=== PATIENT | male | born 1970 | race Caucasian/White ===

== ENCOUNTER 2017-06-04 19:54 | Emergency (ER) | payer MEDICAID ==
[~2017-06-04] VITALS: Ht 180.3 cm; Wt 104.3 kg
[2017-06-04 20:09] VITALS: BP 129/78
--- NOTE | 2017-06-04 22:10 | NUR ---
PAC BROTHERS AT BEDSIDE SPEAKING TO PT REGARDING RESULTS.
--- NOTE | 2017-06-04 22:17 | NUR ---
PT LEFT WITHOUT D/C PAPERS.
== END 2017-06-04 22:20 | disposition home or self-care (01) ==
LOC: ER 19:54
DX: T16.2XXA Foreign body in left ear, initial encounter (principal); H61.22 Impacted cerumen, left ear; I10 Essential (primary) hypertension; X58.XXXA Exposure to other specified factors, initial encounter; Y93.89 Activity, other specified; Y92.89 Other specified places as the place of occurrence of the external cause; Y99.8 Other external cause status
CPT/HCPCS: 69200; 99284; A4606; Z7610

== ENCOUNTER 2018-07-12 23:14 | Emergency (ER) | payer MEDICAID, OTHER ==
[~2018-07-12] VITALS: Ht 180.3 cm; Wt 99.8 kg
--- NOTE | 2018-07-12 23:20 | NUR ---
PATIENT BROUGHT IN BY PARAMEDICS TO BED 9 FOR SYNCOPAL EPISODE.AAOX 3.RESPIRATION EVEN AND UNLABORED.DENIES PAIN OR SOB.SALINE LOACK TO RIGHT HAND INTACT.VS STABLE.SAFETY PREACUTION IMPLEMENTED WITH BOTH SIDE RAILS UP. AT BEDSIDE.CALL LIGHT WITHIN REACH.
[2018-07-12] MEDS ORDERED: IV NS 0.9% 1,000 ML BAG IV ONE (23:30)
--- NOTE | 2018-07-12 23:30 | NUR ---
Addendum: Intravenous fluid administration 1) Normal saline 1 L; start-time 2330 - end time (07/13/2018) 2430 ; PIV # 20 RH; port # 1 2) Normal saline 1 L; start time (07/13/2018) 2430 - end time 0130; PIV # 20 RH; port #1
[2018-07-12 23:45] LABS: BASOPHILS # (AUTO) 0.1 /CMM (0.0-0.2); EOSINOPHILS % (AUTO) 2.3 % (0.0-6.0); HEMATOCRIT 44 % (39-51); HEMOGLOBIN 15.4 g/dL (13.5-17.5); LYMPHOCYTES # (AUTO) 2.8 /CMM (0.8-4.8); LYMPHOCYTES % (AUTO) 41.3 % (20.0-44.0); MEAN CORPUSCULAR HGB CONC 35 g/dl (31.0-36.0); MEAN CORPUSCULAR VOLUME 96 fL (80-96); MONOCYTES # (AUTO) 0.3 /CMM (0.1-1.30); MONOCYTES % (AUTO) 4.8 % (2.0-12.0); NEUTROPHILS # (AUTO) 3.4 /CMM (1.8-8.9); NEUTROPHILS % (AUTO) 50.6 % (43.0-81.0); PLATELET COUNT (AUTO) 184 /CMM (150-450); RED BLOOD CELL COUNT(AUTO) 4.52 MIL/uL (4.5-6.0); WHITE BLOOD COUNT (AUTO) 6.8 K/uL (4.3-11.0)
--- NOTE | 2018-07-12 23:52 | NUR ---
PATIENT LEFT TO CT VIA GURNEY IN STABLE CONDITION.
[2018-07-12 23:59] LABS: ALBUMIN 3.3 g/dL (3.4-5.0); BILIRUBIN,DIRECT 0.1 mg/dL (0.0-0.2); BILIRUBIN,TOTAL 0.2 mg/dL (0.2-1.0); CALCIUM, SERUM 8.4 mg/dL (8.5-10.1); POTASSIUM 3.9 mmol/L (3.5-5.1); TOTAL PROTEIN, SERUM 6.7 g/dL (6.4-8.2)
[2018-07-13] MEDS ORDERED: IV NS 0.9% 1,000 ML BAG IV ONE
[2018-07-13 00:07] LABS: THYROID STIMULATING HORMONE 4.738 uIU/mL (0.358-3.74)
--- NOTE | 2018-07-13 00:27 | NUR ---
ACCU CHECK DONE BS 161.
--- NOTE | 2018-07-13 01:56 | NUR ---
Patient discharged to home in stable condition on behalf of primary nurse Ahsan. Written and verbal after care instructions given. Patient verbalizes understanding of instruction. IV removed. Catheter intact and site benign. Pressure and 4x4 applied to site. No bleeding noted. Ambulatory with a steady gait with family.
[2018-07-13 01:57] VITALS: BP 114/77
--- NOTE | 2018-07-13 01:58 | NUR ---
PATIENT LEFT AMBULATORY IN STABLE CONDITION ACCOMPANIED BY FAMILY.DISCHARGE PAPER AND INSTRUCTIONS GIVEN BY POWER NUT RUNNER OPERATOR MARYANA.
== END 2018-07-13 01:59 | disposition home or self-care (01) ==
LOC: ER 23:15
DX: F10.129 Alcohol abuse with intoxication, unspecified (principal); E86.0 Dehydration; R55 Syncope and collapse; I95.9 Hypotension, unspecified; I10 Essential (primary) hypertension; Z90.89 Acquired absence of other organs; V49.69XA Unspecified car occupant injured in collision with other motor vehicles in traffic accident, initial encounter; Y93.89 Activity, other specified; Y92.413 State road as the place of occurrence of the external cause; Y99.8 Other external cause status
CPT/HCPCS: 36415; 70450-TC; 71045-TC; 72125-TC; 72131-TC; 80048-TC; 80076-TC; 82962-TC; 84443-TC; 85025-TC; 85730-TC; A4606; G0480; J7030; Z7610